=== PATIENT | male | born 1980 | race Caucasian/White ===

== ENCOUNTER 2020-02-28 11:08 | Emergency (ER) | payer OTHER ==
[~2020-02-28] VITALS: Ht 167.6 cm; Wt 96.3 kg
[2020-02-28] MEDS ORDERED: dexamethasone sod phosphate 10mg/ml inj IV STA (11:29)
[2020-02-28] MEDS ORDERED: famotidine/PF 10 mg/ml inj IV ONE (11:30)
[2020-02-28] MEDS ORDERED: PRED20TA PO (11:31)
[2020-02-28 12:39] VITALS: BP 101/73
== END 2020-02-28 12:42 | disposition home or self-care (01) ==
LOC: ER 11:08
DX: R22.0 Localized swelling, mass and lump, head (principal); T43.595A Adverse effect of other antipsychotics and neuroleptics, initial encounter; Z79.899 Other long term (current) drug therapy; Y92.89 Other specified places as the place of occurrence of the external cause
CPT/HCPCS: 96374; 96375; 99284; J1100; J3490; 99285

== ENCOUNTER 2020-05-30 16:30 | Emergency (ER) | payer MEDICAID ==
[~2020-05-30] VITALS: Ht 175.3 cm; Wt 90.0 kg
[2020-05-30 16:39] VITALS: BP 116/70
[2020-05-30] MEDS ORDERED: CEPH500C5 PO (19:06)
== END 2020-05-30 18:02 | disposition left against medical advice (07) ==
LOC: ER 16:31
DX: Z00.8 Encounter for other general examination (principal); Z53.21 Procedure and treatment not carried out due to patient leaving prior to being seen by health care provider

== ENCOUNTER 2020-05-30 18:35 | Emergency (ER) | payer MEDICAID ==
[~2020-05-30] VITALS: Ht 175.3 cm; Wt 90.9 kg
[2020-05-30 18:41] VITALS: BP 135/93
[2020-05-30] MEDS ORDERED: CEPH500C5 PO (19:06)
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
== END 2020-05-30 20:00 | disposition home or self-care (01) ==
LOC: ER 18:37
DX: R05 Cough (principal); Z20.828 Contact with and (suspected) exposure to other viral communicable diseases; F15.90 Other stimulant use, unspecified, uncomplicated; Z79.2 Long term (current) use of antibiotics
CPT/HCPCS: 87635; 99283; C9803

== ENCOUNTER 2020-06-10 10:39 | Emergency (ER) | payer MEDICAID ==
[~2020-06-10] VITALS: Ht 175.3 cm; Wt 74.5 kg
[2020-06-10] MEDS ORDERED: salt irrigation nasal spray 45 ML SPRAY NS STA (11:11)
[2020-06-10] MEDS ORDERED: fluticasone nasal spray 16GM bottle NS STA (11:11)
[2020-06-10 11:55] VITALS: BP 124/90
== END 2020-06-10 11:57 | disposition home or self-care (01) ==
LOC: ER 10:39
DX: J34.89 Other specified disorders of nose and nasal sinuses (principal); R51.9 Headache, unspecified; R09.89 Other specified symptoms and signs involving the circulatory and respiratory systems
CPT/HCPCS: 99283

== ENCOUNTER 2023-11-17 04:07 | Emergency (ER) | payer MEDICAID ==
[~2023-11-17] VITALS: Ht 175.3 cm; Wt 116.4 kg
[2023-11-17 04:13] VITALS: BP 113/81; PULSE 116; RESP 20; TEMP 98.6; O2SAT 98
[2023-11-17 07:30] LABS: URINE AMPHETAMINE SCREEN NEGATIVE (Neg); URINE BARBITUATE SCREEN NEGATIVE (Neg); URINE BENZODIAZEPINES SCREEN NEGATIVE (Neg); URINE CANNABINOID SCREEN NEGATIVE (Neg); URINE COCAINE SCREEN NEGATIVE (Neg); URINE METHADONE SCREEN NEGATIVE (Neg); URINE OPIATE SCREEN NEGATIVE (Neg); URINE PHENCYCLIDINE SCREEN NEGATIVE (Neg)
== END 2023-11-17 07:55 | disposition home or self-care (01) ==
LOC: ER 04:07
DX: Z00.00 Encounter for general adult medical examination without abnormal findings (principal); F14.90 Cocaine use, unspecified, uncomplicated
CPT/HCPCS: 80305; 99283

== ENCOUNTER 2023-12-09 06:25 | Inpatient (IN) | payer MEDICAID ==
[~2023-12-09] VITALS: Ht 180.3 cm; Wt 100.0 kg
[2023-12-09] VITALS (12 sets, daily range): BP systolic 99–112; BP diastolic 52–74; PULSE 86–97; RESP 12–24; TEMP 97.6–98; O2SAT 92–100
[2023-12-09 07:51] LABS: ALBUMIN 4.7 G/DL (3.4-5.0); ANION GAP 21 (8-16); BLOOD UREA NITROGEN 38 MG/DL (7-18); BUN/CREATININE RATIO 12.8 (10.0-20.0); CALCIUM 9.3 MG/DL (8.5-10.1); CHLORIDE 98 MMOL/L (99-107); CREATININE 2.96 MG/DL (0.60-1.10); ETHANOL < 10 MG/DL (<10); GLUCOSE 75 MG/DL (70-104); POTASSIUM 3.4 MMOL/L (3.5-5.1); SODIUM 140 MMOL/L (135-145); eCRCL 34 ML/MIN; eGFR 23 ML/MIN
[2023-12-09] MEDS: ringers solution, lactated 500ml IV solution IV ONE (07:57)
[2023-12-09 08:44] LABS: ALANINE AMINOTRANSFERASE 101 U/L (12-78); ALBUMIN/GLOBULIN RATIO 1.2 (1.1-1.5); ALKALINE PHOSPHATASE 83 IU/L (46-116); ASPARTATE AMINO TRANSFERASE 209 U/L (10-37); BILIRUBIN,DIRECT 0.3 MG/DL (0-0.3); BILIRUBIN,TOTAL 0.8 MG/DL (0.1-1.0); SALICYLATE 10.1 MG/DL (4.0-20.0); TOTAL PROTEIN 8.6 G/DL (6.4-8.2)
[2023-12-09 08:45] LABS: ACETAMINOPHEN < 2.0 UG/ML (10-30)
[2023-12-09] MEDS: ringers solution, lacted 1,000 ML IV ONE ×2 (08:56)
[2023-12-09] MEDS: piperacillin/tazo 4.5gm/100ml 100 ML IV STA (08:56)
[2023-12-09 09:43] LABS: BILIRUBIN,URINE NEGATIVE (Neg); CLARITY,URINE SLIGHTLY CLOUDY (Clear); COLOR,URINE STRAW (Yellow); GLUCOSE, URINE NEGATIVE (Neg); KETONES,URINE NEGATIVE (Neg); LEUKOCYTE ESTERASE ,URINE TRACE (Neg); NITRITES, URINE NEGATIVE (Neg); OCCULT BLOOD,URINE NEGATIVE (Neg); PH,URINE 5.5 (4.8-8.0); PROTEIN,URINE NEGATIVE (Neg); UROBILINOGEN,URINE 0.2 E.U/dL (0.2-1.0)
[2023-12-09 09:51] LABS: UA COLLECTION TYPE CLN CATCH MIDSTREAM
[2023-12-09] MEDS: vancomycin/NS 1 GM ADD-VANTAGE 250 ML X 1 DOSE IV ONE (09:52)
[2023-12-09 09:54] LABS: BACTERIA,URINE 2+ /HPF (Neg); RBC,URINE 0-2 /HPF (0-2); SQUAMOUS EPITHELIAL CELL,UR MANY /LPF (FEW); WBC,URINE 0-4 /HPF (0-4)
[2023-12-09 09:55] LABS: TRANSITIONAL EPI CELLS,URINE FEW /HPF
[2023-12-09 09:59] LABS: URINE AMPHETAMINE SCREEN NEGATIVE (Neg); URINE BARBITUATE SCREEN NEGATIVE (Neg); URINE BENZODIAZEPINES SCREEN NEGATIVE (Neg); URINE CANNABINOID SCREEN POSITIVE (Neg); URINE COCAINE SCREEN NEGATIVE (Neg); URINE METHADONE SCREEN NEGATIVE (Neg); URINE PHENCYCLIDINE SCREEN NEGATIVE (Neg)
[2023-12-09] MEDS: diazepam inj 5 MG/ML inj. IV ONE (10:27)
[2023-12-09] MEDS ORDERED: ondansetron/PF 4mg/2ml inj IV PRN (11:25)
[2023-12-09] MEDS ORDERED: magnesium 2GM in 50ml NS 50 ML IV PRN (11:25)
[2023-12-09] MEDS ORDERED: acetaminophen 325mg tablet PO PRN (11:25)
[2023-12-09] MEDS ORDERED: magnesium Cl slow-release 64mg tablet PO PRN (11:25)
[2023-12-09] MEDS ORDERED: potassium Cl 40MEQ/1/2NS 520ml 520 ML IV PRN (11:25)
[2023-12-09] MEDS ORDERED: magnesium 4gm in 100ml NS 100 ML IV PRN (11:25)
[2023-12-09] MEDS ORDERED: potassium Cl 20 mEq SR tablet PO PRN (11:25)
[2023-12-09 11:57] LABS: BASOPHILS % (AUTO) 0.1 % (0-1); EOSINOPHILS % (AUTO) 0 % (0-6); HEMATOCRIT 37.4 % (42.0-52.0); HEMOGLOBIN 12.4 g/dl (14.0-17.9); LYMPHOCYTES # (AUTO) 1.3 X10'3 (1.1-4.8); LYMPHOCYTES % (AUTO) 5.7 % (21-51); MEAN CORPUSCULAR HEMOGLOBIN 31.3 PG (27.0-31.0); MEAN CORPUSCULAR HGB CONC 33.1 g/dL (33.0-36.5); MEAN CORPUSCULAR VOLUME 94.5 FL (78-98); MEAN PLATELET VOLUME 8.6 FL (7.4-10.4); MONOCYTES # (AUTO) 2.3 X10'3 (0-0.9); MONOCYTES % (AUTO) 10.1 % (2-12); NEUTROPHILS # (AUTO) 18.9 X10'3 (1.8-7.7); NEUTROPHILS % (AUTO) 84.1 % (42-75); PLATELET COUNT 223 X10'3 (140-440); RED BLOOD COUNT 3.96 X10'6 (4.70-6.10); RED CELL DISTRIBUTION WIDTH 12.8 % (11.5-14.5); WHITE BLOOD COUNT 22.4 X10'3 (4.5-11.0)
[2023-12-09 12:16] LABS: CREATINE KINASE 8769 U/L (39-308)
[2023-12-09] MEDS: normal saline 1000ml 1,000 ML IV SCH (12:28)
[2023-12-09 12:48] LABS: OCCULT BLOOD STOOL POSITIVE (Neg)
[2023-12-09] MEDS ORDERED: haloperidol 5mg tablet PO PRN (13:10)
[2023-12-09] MEDS ORDERED: LORazepam 2 mg/ml vial IV PRN (13:10)
[2023-12-09] MEDS ORDERED: haloperidol lactate 5mg/ml inj IM PRN (13:10)
[2023-12-09] MEDS ORDERED: BUSP30TA3 PO (15:14)
[2023-12-09] MEDS ORDERED: DESV25TA2 PO (15:14)
[2023-12-09] MEDS ORDERED: MIDAZolam 1 MG/ML 5ML VIAL ONE (17:35)
[2023-12-09] MEDS ORDERED: fentaNYL/PF 50MCG/1 ML 2ML syringe ONE (17:35)
[2023-12-09] MEDS ORDERED: LIDOcaine 2% Viscous 15ml cup ONE (17:36)
[2023-12-09] MEDS ORDERED: diphenhydrAMINE 50 mg/ml inj ONE (18:21)
[2023-12-09] MEDS ORDERED: heparin, porcine 5000 units/ml vial SQ SCH (20:00)
[2023-12-09] MEDS: thiamine 100mg/ml 2ml inj. IV SCH (21:26)
[2023-12-09] MEDS: pantoprazole 40MG/NS 100ML BAG 100 ML IV SCH (21:58)
[2023-12-10] VITALS (7 sets, daily range): BP systolic 102–109; BP diastolic 52–67; PULSE 67–95; RESP 16–20; TEMP 97.6–98.9; O2SAT 94–100
[2023-12-10 06:19] LABS: BASOPHILS % (AUTO) 0.3 % (0-1); EOSINOPHILS # (AUTO) 0.1 X10'3 (0-0.9); HEMATOCRIT 34.4 % (42.0-52.0); HEMOGLOBIN 11.7 g/dl (14.0-17.9); LYMPHOCYTES # (AUTO) 1.7 X10'3 (1.1-4.8); LYMPHOCYTES % (AUTO) 20.4 % (21-51); MEAN CORPUSCULAR HEMOGLOBIN 32.2 PG (27.0-31.0); MEAN CORPUSCULAR HGB CONC 33.9 g/dL (33.0-36.5); MEAN PLATELET VOLUME 8.6 FL (7.4-10.4); MONOCYTES # (AUTO) 0.9 X10'3 (0-0.9); NEUTROPHILS # (AUTO) 5.7 X10'3 (1.8-7.7); NEUTROPHILS % (AUTO) 67.3 % (42-75); PLATELET COUNT 180 X10'3 (140-440); RED BLOOD COUNT 3.63 X10'6 (4.70-6.10); RED CELL DISTRIBUTION WIDTH 13.3 % (11.5-14.5); WHITE BLOOD COUNT 8.5 X10'3 (4.5-11.0)
[2023-12-10 06:22] LABS: INR 1.2 INR; PROTHROMBIN TIME 12.3 SECONDS (9.0-12.0)
[2023-12-10 06:27] LABS: ALANINE AMINOTRANSFERASE 336 U/L (12-78); ALBUMIN 2.9 G/DL (3.4-5.0); ALKALINE PHOSPHATASE 53 IU/L (46-116); ANION GAP 11 (8-16); ASPARTATE AMINO TRANSFERASE 535 U/L (10-37); BILIRUBIN,TOTAL 0.6 MG/DL (0.1-1.0); BLOOD UREA NITROGEN 31 MG/DL (7-18); BUN/CREATININE RATIO 18.3 (10.0-20.0); CHLORIDE 106 MMOL/L (99-107); CREATININE 1.69 MG/DL (0.60-1.10); GLUCOSE 96 MG/DL (70-104); LIPASE 31 U/L (16-77); MAGNESIUM 2.9 MG/DL (1.5-2.4); SODIUM 140 MMOL/L (135-145); TOTAL CARBON DIOXIDE 22.9 MMOL/L (24-32); TOTAL PROTEIN 5.7 G/DL (6.4-8.2); eCRCL 59 ML/MIN; eGFR 44 ML/MIN
[2023-12-10] MEDS ORDERED: PALI9TAB4 PO (07:13)
[2023-12-10] MEDS: folic acid 1mg/0.2ml inj IV SCH (07:50)
[2023-12-10] MEDS: CefTRIAXone 2gm/D5W 50ml BAG 50 ML IV SCH (07:51)
[2023-12-10 08:47] LABS: CALCIUM 6.8 MG/DL (8.5-10.1); POTASSIUM 2.9 MMOL/L (3.5-5.1)
[2023-12-10] MEDS: potassium Cl 20 mEq SR tablet PO PRN (09:01)
[2023-12-10 09:58] LABS: CREATINE KINASE 10757 U/L (39-308)
[2023-12-10] MEDS: acetaminophen 325mg tablet PO PRN (17:23)
[2023-12-11 06:00] VITALS: BP 122/72; PULSE 90; RESP 19; TEMP 98.3; O2SAT 97
[2023-12-11 07:59] LABS: BASOPHILS % (AUTO) 0.3 % (0-1); EOSINOPHILS # (AUTO) 0.1 X10'3 (0-0.9); EOSINOPHILS % (AUTO) 1.4 % (0-6); HEMATOCRIT 32.9 % (42.0-52.0); HEMOGLOBIN 11.2 g/dl (14.0-17.9); LYMPHOCYTES # (AUTO) 1.5 X10'3 (1.1-4.8); LYMPHOCYTES % (AUTO) 16.4 % (21-51); MEAN CORPUSCULAR HEMOGLOBIN 32.2 PG (27.0-31.0); MEAN CORPUSCULAR VOLUME 94.7 FL (78-98); MEAN PLATELET VOLUME 8.8 FL (7.4-10.4); MONOCYTES # (AUTO) 1.2 X10'3 (0-0.9); MONOCYTES % (AUTO) 13.7 % (2-12); NEUTROPHILS # (AUTO) 6.2 X10'3 (1.8-7.7); NEUTROPHILS % (AUTO) 68.2 % (42-75); PLATELET COUNT 183 X10'3 (140-440); RED BLOOD COUNT 3.48 X10'6 (4.70-6.10); RED CELL DISTRIBUTION WIDTH 13.2 % (11.5-14.5); WHITE BLOOD COUNT 9.1 X10'3 (4.5-11.0)
[2023-12-11 08:08] LABS: INR 1.1 INR; PROTHROMBIN TIME 11.4 SECONDS (9.0-12.0)
[2023-12-11 08:46] LABS: ALANINE AMINOTRANSFERASE 327 U/L (12-78); ALBUMIN 2.7 G/DL (3.4-5.0); ALBUMIN/GLOBULIN RATIO 0.9 (1.1-1.5); ALKALINE PHOSPHATASE 52 IU/L (46-116); ANION GAP 8 (8-16); ASPARTATE AMINO TRANSFERASE 248 U/L (10-37); BILIRUBIN,TOTAL 0.4 MG/DL (0.1-1.0); BLOOD UREA NITROGEN 9 MG/DL (7-18); BUN/CREATININE RATIO 9.6 (10.0-20.0); CALCIUM 7.3 MG/DL (8.5-10.1); CHLORIDE 108 MMOL/L (99-107); CREATININE 0.94 MG/DL (0.60-1.10); GLUCOSE 102 MG/DL (70-104); LIPASE 36 U/L (16-77); POTASSIUM 3.8 MMOL/L (3.5-5.1); SODIUM 141 MMOL/L (135-145); TOTAL PROTEIN 5.8 G/DL (6.4-8.2); eCRCL 107 ML/MIN; eGFR 87 ML/MIN
[2023-12-11 10:00] VITALS: BP 121/79; PULSE 94; RESP 18; TEMP 98.1; O2SAT 96
[2023-12-11 14:17] LABS: CREATINE KINASE 5118 U/L (39-308)
[2023-12-11 18:00] VITALS: BP 120/82; PULSE 85; RESP 16; TEMP 98.8; O2SAT 98
[2023-12-11 22:00] VITALS: BP 117/74; PULSE 92; RESP 16; TEMP 97.8; O2SAT 92
[2023-12-12 06:10] LABS: BASOPHILS % (AUTO) 0.3 % (0-1); EOSINOPHILS # (AUTO) 0.2 X10'3 (0-0.9); EOSINOPHILS % (AUTO) 2.6 % (0-6); HEMATOCRIT 36.5 % (42.0-52.0); HEMOGLOBIN 12.2 g/dl (14.0-17.9); LYMPHOCYTES # (AUTO) 1.8 X10'3 (1.1-4.8); LYMPHOCYTES % (AUTO) 23.7 % (21-51); MEAN CORPUSCULAR HEMOGLOBIN 31.8 PG (27.0-31.0); MEAN CORPUSCULAR HGB CONC 33.4 g/dL (33.0-36.5); MEAN CORPUSCULAR VOLUME 95.3 FL (78-98); MONOCYTES # (AUTO) 0.9 X10'3 (0-0.9); MONOCYTES % (AUTO) 11.7 % (2-12); NEUTROPHILS # (AUTO) 4.7 X10'3 (1.8-7.7); NEUTROPHILS % (AUTO) 61.7 % (42-75); PLATELET COUNT 214 X10'3 (140-440); RED BLOOD COUNT 3.82 X10'6 (4.70-6.10); RED CELL DISTRIBUTION WIDTH 13.1 % (11.5-14.5); WHITE BLOOD COUNT 7.6 X10'3 (4.5-11.0)
[2023-12-12 06:34] LABS: ALANINE AMINOTRANSFERASE 248 U/L (12-78); ALBUMIN 2.7 G/DL (3.4-5.0); ALBUMIN/GLOBULIN RATIO 0.8 (1.1-1.5); ALKALINE PHOSPHATASE 53 IU/L (46-116); ANION GAP 8 (8-16); ASPARTATE AMINO TRANSFERASE 135 U/L (10-37); BILIRUBIN,TOTAL 0.4 MG/DL (0.1-1.0); BLOOD UREA NITROGEN 6 MG/DL (7-18); BUN/CREATININE RATIO 7.4 (10.0-20.0); CALCIUM 8.2 MG/DL (8.5-10.1); CHLORIDE 108 MMOL/L (99-107); CREATININE 0.81 MG/DL (0.60-1.10); GLUCOSE 103 MG/DL (70-104); POTASSIUM 3.9 MMOL/L (3.5-5.1); SODIUM 142 MMOL/L (135-145); TOTAL CARBON DIOXIDE 26.4 MMOL/L (24-32); TOTAL PROTEIN 6.1 G/DL (6.4-8.2); eCRCL 124 ML/MIN; eGFR > 90 ML/MIN
[2023-12-12] MEDS: LORazepam 1 MG tablet PO PRN (09:59)
[2023-12-12 10:00] VITALS: BP 111/85; PULSE 91; RESP 16; TEMP 98.7; O2SAT 96
[2023-12-12] MEDS: diphenhydrAMINE 25mg capsule PO ONE (10:49)
[2023-12-12 16:37] LABS: CREATINE KINASE 1697 U/L (39-308)
== END 2023-12-12 16:30 | disposition left against medical advice (07) | DRG 720 ==
LOC: ER 06:26 → ED HOLD 11:56 → SUR 3N 19:30 → ORTHO 4S 12-10 17:08
PROVIDERS: ADMIT Internal Medicine; ATTEND Internal Medicine
DX: A41.9 Sepsis, unspecified organism (principal); N17.0 Acute kidney failure with tubular necrosis; M62.82 Rhabdomyolysis; F29 Unspecified psychosis not due to a substance or known physiological condition; K92.2 Gastrointestinal hemorrhage, unspecified; E86.0 Dehydration; Z53.29 Procedure and treatment not carried out because of patient's decision for other reasons; F10.129 Alcohol abuse with intoxication, unspecified; F41.9 Anxiety disorder, unspecified; Y90.9 Presence of alcohol in blood, level not specified; E87.6 Hypokalemia; R74.01 Elevation of levels of liver transaminase levels
CPT/HCPCS: 36415; 43239; 71045; 80048; 80053; 80076; 80305; 80320; 80329; 81001; 82272; 82550; 83605; 83690; 83735; 84145; 85025; 85610; 87040; 87081; 93005; 96365; 96367; 97116; 97161; 97530; 99152; 99285; A4620; C9113; G0378; J0696; J1200; J2250; J2543; J3010; J3360; J3370; J3411; J3490; J7030; J7120; Q0163